=== PATIENT | male | born 1975 | race Asian ===

== ENCOUNTER → 2021-03-06 | Outpatient (CLI) | payer OTHER ==
[~2021-03-06] MED LIST: COLACE 100MG C100 MG PO; HEMORRHOIDAL OI57 GM PR; OMEPRAZOLE20 MG PO; ZOFRAN4 MG PO
== END ==
LOC: EXRD 09:05
DX: M25.521 Pain in right elbow (principal)
CPT/HCPCS: 73080

== ENCOUNTER → 2021-03-21 | Outpatient (CLI) | payer OTHER | LOC: EXRD 09:35 | DX: R10.12 Left upper quadrant pain (principal); K76.0 Fatty (change of) liver, not elsewhere classified; K80.20 Calculus of gallbladder without cholecystitis without obstruction; N28.1 Cyst of kidney, acquired | CPT/HCPCS: 76700 ==

== ENCOUNTER → 2021-07-16 | Outpatient (CLI) | payer OTHER | LOC: RAD 07:45 | DX: K21.9 Gastro-esophageal reflux disease without esophagitis (principal) | CPT/HCPCS: 74221 ==

== ENCOUNTER → 2021-07-24 | Day surgery (SDC) | payer OTHER ==
[~2021-07-24] MED LIST changes: +LIPITOR TAB 1010 MG PO
== END | disposition home or self-care (01) ==
LOC: OR 07:14
DX: K31.9 Disease of stomach and duodenum, unspecified (principal); K92.2 Gastrointestinal hemorrhage, unspecified; K62.9 Disease of anus and rectum, unspecified; G89.29 Other chronic pain; K21.9 Gastro-esophageal reflux disease without esophagitis; J30.9 Allergic rhinitis, unspecified; E78.2 Mixed hyperlipidemia; E66.3 Overweight; L40.9 Psoriasis, unspecified; F17.210 Nicotine dependence, cigarettes, uncomplicated; Z68.27 Body mass index [BMI] 27.0-27.9, adult; Z79.51 Long term (current) use of inhaled steroids; Z20.822 Contact with and (suspected) exposure to COVID-19
CPT/HCPCS: J2704; J7120

== ENCOUNTER 2022-03-07 15:23 | Emergency (ER) | payer OTHER ==
[2022-03-07 16:20] LABS: BUN/CREATININE RATIO 15 (0-10)
[2022-03-07 16:38] LABS: HEMOGLOBIN 18.1 gm/dl (14.0-17.5); RED BLOOD COUNT 6.3 M/UL (4.20-5.50); WHITE BLOOD COUNT 4.4 K/UL (4.5-11.0)
[2022-03-07] MEDS ORDERED: PHENERGAN 25 MG25 M1 PO ×2 (20:39→20:40)
[2022-03-07] MEDS ORDERED: ONDANSETRON ODT4 MG SL (20:39)
== END 2022-03-07 21:59 | disposition home or self-care (01) ==
LOC: ER1 15:23
PROVIDERS: Physician Assistant
DX: R10.13 Epigastric pain (principal); R11.2 Nausea with vomiting, unspecified; R19.7 Diarrhea, unspecified; F17.200 Nicotine dependence, unspecified, uncomplicated
CPT/HCPCS: 80053; 83690; 85025; 96374; 96375; 96376; 99284; C9113; J2405; Q9967